=== PATIENT | male | born 1995 | race Caucasian/White ===

== ENCOUNTER → 2019-04-17 | Outpatient (CLI) | payer BC, SELFPAY ==
[2019-04-20 03:06] LABS: Alternaria alternata <0.10 kU/L (Class 0); Aspergillus fumigatus <0.10 kU/L (Class 0); Bahia Grass 0.67 kU/L (Class II); Bermuda Grass 0.28 kU/L (Class 0/I); Bluegrass, Kentucky 1.63 kU/L (Class III); Cat Hair/Dander, Standard <0.10 kU/L (Class 0); Cedar, Mountain <0.10 kU/L (Class 0); Cladosporium herbarum <0.10 kU/L (Class 0); Cockroach, American <0.10 kU/L (Class 0); D farinae Mite <0.10 kU/L (Class 0); D pteronyssinus 0.14 kU/L (Class 0/I); Dog Epithelia 0.21 kU/L (Class 0/I); Elm, American White <0.10 kU/L (Class 0); Hazelnut Tree <0.10 kU/L (Class 0); Hickory, White <0.10 kU/L (Class 0); Maple/Box Elder <0.10 kU/L (Class 0); Mucor racemosus <0.10 kU/L (Class 0); Mugwort <0.10 kU/L (Class 0); Mulberry, White <0.10 kU/L (Class 0); Oak, White <0.10 kU/L (Class 0); Penicillium chrysogen <0.10 kU/L (Class 0); Pigweed, Rough <0.10 kU/L (Class 0); Plantain, English <0.10 kU/L (Class 0); Ragweed, Short/Common <0.10 kU/L (Class 0); Sheep Sorrel(Dock) <0.10 kU/L (Class 0); Stemphylium herbarum <0.10 kU/L (Class 0); Sweet Gum <0.10 kU/L (Class 0); Sycamore, American <0.10 kU/L (Class 0)
[2019-04-24 13:01] LABS: Nettle <0.10 kU/L (Class 0)
== END | disposition home or self-care (01) ==
LOC: MFPLAB 08:11
PROVIDERS: Family Provider Family Medicine; PCP Family Medicine; Referring Provider Family Medicine; Visit Provider Family Medicine
DX: J30.9 Allergic rhinitis, unspecified (principal)
CPT/HCPCS: 36415; 86003

== ENCOUNTER → 2022-03-24 | Outpatient (CLI) | payer BC, SELFPAY ==
--- NOTE | 2022-03-24 10:26 | RAD_ITS ---
INDICATION: rule out fluid on lungs EXAMINATION/TECHNIQUE: X-RAY - XR Chest 2 Views COMPARISON: None. FINDINGS: LINES/DEVICES: None. LUNGS: No consolidation, edema or effusion. No pneumothorax. MEDIASTINUM AND CARDIOVASCULAR STRUCTURES: Cardiac silhouette not enlarged. Central airways and mediastinal contour are unremarkable. BONES AND SOFT TISSUES: Unremarkable. RAD/Chest PA and Lateral IMPRESSION: No radiographic evidence of acute cardiopulmonary disease. Electronically Signed: Romulo Huynh MD at 12:19 EDT ,
== END | disposition home or self-care (01) ==
LOC: MTLAB 10:26 → MTRAD 10:28
PROVIDERS: PCP Family Medicine; Referring Provider Nurse Practitioner Family; Visit Provider Nurse Practitioner Family
DX: R07.89 Other chest pain (principal)
CPT/HCPCS: 71046

== ENCOUNTER → 2022-12-23 | Outpatient (CLI) | payer BC, SELFPAY ==
[2022-12-25 15:08] LABS: Deamidated Gliadin IgA 12 units (0-19); Deamidated Gliadin IgG 3 units (0-19); Endomysial Antibody IgA Negative (Negative); Immunoglobulin A 234 mg/dL (90-386); t-Transglutaminase IgA <2 U/mL (0-3)
[2022-12-31 00:06] LABS: Beef <0.10 kU/L (Class 0); Chocolate <0.10 kU/L (Class 0); Corn <0.10 kU/L (Class 0); Egg, Whole <0.10 kU/L (Class 0); Milk (Cow) <0.10 kU/L (Class 0); Peanut <0.10 kU/L (Class 0); Pork <0.10 kU/L (Class 0); Soybean <0.10 kU/L (Class 0); Wheat <0.10 kU/L (Class 0)
== END | disposition home or self-care (01) ==
LOC: MFPLAB 13:38
PROVIDERS: PCP Family Medicine; Visit Provider Family Medicine
DX: Z91.018 Allergy to other foods (principal); R19.5 Other fecal abnormalities
CPT/HCPCS: 36415; 82784; 83516; 86003; 86005; 86255

== ENCOUNTER → 2023-04-09 | Outpatient (CLI) | payer BC, SELFPAY ==
[2023-04-09 13:12] LABS: Thyroid Stim Hormone (TSH) 1.67 uIU/mL (0.358-3.74)
== END | disposition home or self-care (01) ==
LOC: MTLAB 11:20
PROVIDERS: PCP Family Medicine
DX: R19.4 Change in bowel habit (principal); R10.30 Lower abdominal pain, unspecified
CPT/HCPCS: 36415; 84443

== ENCOUNTER → 2023-04-20 | Outpatient (CLI) | payer BC, SELFPAY ==
[2023-04-20 12:07] LABS: Absolute Lymphocyte Count 1.16 X10^3/uL (0.83-4.51); Absolute Neutrophil Count 2.1 X10^3/uL (2.0-7.7); Basophil# 0.03 X10^3/uL; Basophil% 0.8 % (0-1); Eosinophil# 0.08 X10^3/uL; Eosinophils% 2.1 % (0-5); Hematocrit 45.1 % (40-54); Hemoglobin 14.9 g/dL (13.0-16.5); Lymphocyte # 1.16 X10^3/ul (0.83-4.51); Lymphocyte % 29.8 % (19-41); Mean Corpuscular Hgb 31.4 pg (27.0-32.0); Mean Corpuscular Volume 95.1 fL (80-94); Monocyte# 0.53 X10^3/uL; Monocyte% 13.6 % (0-10); NRBC Flagged by Analyzer 0 % (0-5); Neutrophil # 2.09 X10^3/uL (2.7-7.7); Neutrophil % 53.7 % (47-70); Platelet Count 193 K/mm3 (150-450); RBC Distribution Width CV 11.9 % (11.6-14.6); RBC Distribution Width SD 42.1 fl (35.1-43.9); Red Blood Count 4.74 M/mm3 (4.6-6.2); White Blood Count 3.9 K/mm3 (4.4-11.0)
[2023-04-20 12:30] LABS: Vitamin B12 350 pg/mL (211-911); Vitamin D,25 Hydroxy 21.7 ng/mL
[2023-04-20 13:03] LABS: ALB/GLOB Ratio 1.1 RATIO (0.9-2.4); AST(SGOT) 24 U/L (15-37); Alanine Aminotransfer ALT/SGPT 30 U/L (16-61); Albumin, Serum 4.1 g/dL (3.2-5.0); Alkaline Phosphatase 77 U/L (45-117); Anion Gap 4 (5-15); BUN 16 mg/dL (7-18); BUN/Creat Ratio 13.4 RATIO (10-20); Calcium,Total 9.2 mg/dL (8.5-10.1); Chloride 106 mmol/L (98-107); Creatinine, Serum 1.19 mg/dL (0.70-1.30); EST Glomerular Filtration Rate 76 mL/min (>60); Est Glom Filt Rate - Afr Amer 92 mL/min (>60); Globulin 3.7 g/dL (2.2-4.2); Glucose 94 mg/dL (74-106); Magnesium 2.4 mg/dL (1.6-2.6); Potassium 4.2 mmol/L (3.5-5.1); Protein, Total 7.8 g/dL (6.4-8.2); Sodium Level 140 mmol/L (136-145); T4 Free Direct 0.88 ng/dL (0.76-1.46)
== END | disposition home or self-care (01) ==
LOC: MFPLAB 09:51
PROVIDERS: PCP Family Medicine; Visit Provider Family Medicine
DX: R00.2 Palpitations (principal); R53.83 Other fatigue
CPT/HCPCS: 36415; 80053; 82306; 82607; 83735; 84439; 84443; 85025

== ENCOUNTER → 2023-09-28 | Outpatient (CLI) | payer BC, SELFPAY ==
--- NOTE | 2023-09-28 14:27 | RAD_ITS ---
STUDY: X-RAY - PARANASAL SINUSES REASON FOR EXAM: Male, 28 years old. SINUS CONGESTION TECHNIQUE: 3 view(s) of the paranasal sinuses were obtained. COMPARISON: None. FINDINGS: Normal visualized frontal, maxillary, ethmoidal and sphenoid sinuses. Normal visualized facial bones. The soft tissue structures are unremarkable. RAD/Sinuses min 3 Views IMPRESSION: Normal x-rays of the paranasal sinuses. Electronically Signed: Scot Ledesma MD at 14:54 EST ,
[2023-10-04 15:08] LABS: Alternaria alternata <0.10 kU/L (Class 0); Aspergillus fumigatus <0.10 kU/L (Class 0); Bahia Grass 0.27 kU/L (Class 0/I); Bermuda Grass 0.11 kU/L (Class 0/I); Cat Hair/Dander, Standard <0.10 kU/L (Class 0); Cedar, Mountain <0.10 kU/L (Class 0); Cladosporium herbarum <0.10 kU/L (Class 0); Cockroach, American <0.10 kU/L (Class 0); D farinae Mite <0.10 kU/L (Class 0); D pteronyssinus 0.13 kU/L (Class 0/I); Dog Epithelia 0.19 kU/L (Class 0/I); Elm, American White <0.10 kU/L (Class 0); Hazelnut Tree <0.10 kU/L (Class 0); Hickory, White <0.10 kU/L (Class 0); Johnson Grass <0.10 kU/L (Class 0); Maple/Box Elder <0.10 kU/L (Class 0); Mucor racemosus <0.10 kU/L (Class 0); Mugwort <0.10 kU/L (Class 0); Mulberry, White <0.10 kU/L (Class 0); Nettle <0.10 kU/L (Class 0); Oak, White <0.10 kU/L (Class 0); Penicillium chrysogen <0.10 kU/L (Class 0); Pigweed, Rough <0.10 kU/L (Class 0); Plantain, English <0.10 kU/L (Class 0); Ragweed, Short/Common <0.10 kU/L (Class 0); Sheep Sorrel(Dock) <0.10 kU/L (Class 0); Stemphylium herbarum <0.10 kU/L (Class 0); Sweet Gum <0.10 kU/L (Class 0); Sycamore, American <0.10 kU/L (Class 0)
== END | disposition home or self-care (01) ==
LOC: MTLAB 14:26
PROVIDERS: PCP Family Medicine; Referring Provider Family Medicine; Visit Provider Family Medicine
DX: R09.81 Nasal congestion (principal)
CPT/HCPCS: 36415; 70220; 86003

== ENCOUNTER → 2023-11-26 | Outpatient (CLI) | payer BC, SELFPAY ==
--- NOTE | 2023-11-26 13:55 | CT_ITS ---
INDICATION: CHRONIC SINUSITIS EXAMINATION: CT SINUSES - CT Sinuses W/O Contrast Injection TECHNIQUE: Helically acquired images were obtained of the paranasal sinuses. A radiation dose optimization technique was used for this scan. IV Contrast dosage and agent: RADIATION DOSAGE (If Supplied By Facility): CTDIvol = ( 28.14 ) mGy, DLP = ( 770.81 ) mGycm COMPARISON: No relevant prior comparison study available FINDINGS: FRONTAL SINUSES AND RECESSES: There is minimal opacification. ETHMOID AIR CELLS: There is mild opacification. MAXILLARY SINUSES: There is mild opacification. There are few round low-attenuation foci within the maxillary sinuses which may reflect mucous retention cysts or polyps. OSTIOMEATAL COMPLEXES: Clear and normally formed. SPHENOID SINUSES: There is trace opacification. SPHENOETHMOIDAL RECESSES: Clear. ANCILLARY FINDINGS: NASAL TURBINATES: There are bilateral middle turbinate willard bullosa. NASAL SEPTUM: There is mild right septal deviation right of midline associated with a bony spur. ORBITS: Unremarkable. VISUALIZED DENTITION: No periodontal osseous erosion. ANTERIOR CRANIAL FOSSA: Unremarkable. CT/Sinus/Facial Bone IMPRESSION: Mild pansinusitis. Bilateral middle turbinate willard bullosa. Mild nasal septal deviation right of midline. Electronically Signed: Lalita Banks MD at 14:34 EDT ,
== END | disposition home or self-care (01) ==
PROVIDERS: PCP Family Medicine; Referring Provider Otolaryngology; Visit Provider Otolaryngology
DX: J32.8 Other chronic sinusitis (principal)
CPT/HCPCS: 70486

== ENCOUNTER → 2024-02-16 | Outpatient (CLI) | payer BC, SELFPAY ==
[2024-02-16 15:15] LABS: Absolute Lymphocyte Count 1.64 X10^3/uL (0.83-4.51); Basophil# 0.04 X10^3/uL; Basophil% 0.9 % (0-1); Eosinophil# 0.13 X10^3/uL; Eosinophils% 3.1 % (0-5); Hematocrit 44.7 % (40-54); Lymphocyte # 1.64 X10^3/ul (0.83-4.51); Lymphocyte % 38.9 % (19-41); Mean Corp Hgb Conc 33.6 g/dL (32-36); Mean Corpuscular Hgb 30.8 pg (27.0-32.0); Mean Corpuscular Volume 91.8 fL (80-94); Mean Platelet Vol. 10.7 fl (6.2-12.0); Monocyte# 0.38 X10^3/uL; NRBC Flagged by Analyzer 0 % (0-5); Neutrophil # 2.01 X10^3/uL (2.7-7.7); Neutrophil % 47.6 % (47-70); Platelet Count 203 K/mm3 (150-450); RBC Distribution Width CV 11.9 % (11.6-14.6); Red Blood Count 4.87 M/mm3 (4.6-6.2); White Blood Count 4.2 K/mm3 (4.4-11.0)
[2024-02-16 15:50] LABS: Vitamin D,25 Hydroxy 24.2 ng/mL
[2024-02-16 16:19] LABS: ALB/GLOB Ratio 1.3 RATIO (0.9-2.4); AST(SGOT) 33 U/L (15-37); Alanine Aminotransfer ALT/SGPT 35 U/L (16-61); Albumin, Serum 4.3 g/dL (3.2-5.0); Alkaline Phosphatase 89 U/L (45-117); Anion Gap 6 (5-15); BUN 22 mg/dL (7-18); BUN/Creat Ratio 20.4 RATIO (10-20); Calcium,Total 9.3 mg/dL (8.5-10.1); Chloride 104 mmol/L (98-107); Creatinine, Serum 1.08 mg/dL (0.70-1.30); EST Glomerular Filtration Rate 85 mL/min (>60); Est Glom Filt Rate - Afr Amer 103 mL/min (>60); Globulin 3.4 g/dL (2.2-4.2); Glucose 86 mg/dL (74-106); Magnesium 2.4 mg/dL (1.6-2.6); Potassium 4.5 mmol/L (3.5-5.1); Protein, Total 7.7 g/dL (6.4-8.2); Sodium Level 138 mmol/L (136-145); Thyroid Stim Hormone (TSH) 1.48 uIU/mL (0.358-3.74)
== END | disposition home or self-care (01) ==
LOC: MFPLAB 11:39
PROVIDERS: PCP Family Medicine; Visit Provider Family Medicine
DX: R00.2 Palpitations (principal); E55.9 Vitamin D deficiency, unspecified
CPT/HCPCS: 36415; 80053; 82306; 83735; 84443; 85025

== ENCOUNTER → 2024-04-17 | Outpatient (CLI) | payer BC, SELFPAY ==
--- NOTE | 2024-04-17 12:59 | ECHOD_ITS ---
Reason For Study: Palpitations Procedure This was a 2D Doppler, Color Flow transthoracic echocardiogram. Technically difficult apicals due to poor acoustic window. Exam performed in department. Left Ventricle Normal LV size. Left ventricular systolic function is normal. The left ventricular ejection fraction is 65 %. No regional wall motion abnormalities noted. Right Ventricle Normal RV size. Normal systolic function. Atria Normal left atrium. Normal right atrium. Mitral Valve Normal mitral valve. Tricuspid Valve Normal tricuspid valve. Aortic Valve Trisinus/trileaflet aortic valve. Pulmonic Valve The pulmonic valve is not well visualized. Great Vessels Normal aortic root. The pulmonary artery is normal size. Normal inferior vena cava. Pericardium/Pleural No pericardial effusion. MMode/2D Measurements & Calculations LVIDd: 4.9 cm IVSd: 0.93 cm Ao root diam: 3.2 cm LVIDs: 3.2 cm LVPWd: 0.78 cm LA dimension: 2.7 cm RVDd: 3.8 cm FS: 35.0 % LAV(MOD-sp4): 23.1 ml LA A4 area: 11.8 cm2 RA A4 area: 11.2 cm2 TAPSE: 1.7 cm Time Measurements MV dec time: 0.22 sec Doppler Measurements & Calculations MV E max fadi: 90.2 cm/sec Lat Peak E' Fadi: 16.6 cm/sec Med Peak E' Fadi: 13.4 cm/sec MV A max fadi: 61.0 cm/sec E/E' lat: 5.4 E/E' med: 6.7 MV E/A: 1.5 MV V2 max: 108.1 cm/sec MV P1/2t max fadi: 109.2 cm/sec Ao V2 max: 95.0 cm/sec MV max P.7 mmHg MV P1/2t: 85.9 msec Ao max P.7 mmHg MV V2 mean: 47.4 cm/sec MV mean P.2 mmHg MV dec slope: 372.3 cm/sec2 MV V2 VTI: 31.1 cm MVA(P1/2t): 2.6 cm2 LV V1 max: 84.7 cm/sec PA V2 max: 87.6 cm/sec LV V1 max P.9 mmHg PA max PG (full): 0.69 mmHg PA V2 mean: 62.1 cm/sec PA mean PG (full): 0.44 mmHg ECHO/Echo Complete Interpretation Summary Normal LV size. Left ventricular systolic function is normal. The left ventricular ejection fraction is 65 %. Structurally normal valves. Ordering Physician: Blaine Lopes Referring Physician: Blaine Lopes Performed By: Jeremie Boles RCS
== END | disposition home or self-care (01) ==
LOC: CVS 12:52
PROVIDERS: PCP Family Medicine; Referring Provider Internal Medicine Cardiovascular Disease; Visit Provider Internal Medicine Cardiovascular Disease
DX: R00.2 Palpitations (principal)
CPT/HCPCS: 93306

== ENCOUNTER → 2024-05-23 | Outpatient (CLI) | payer BC, SELFPAY ==
[2024-05-23 12:50] LABS: Absolute Neutrophil Count 2.5 X10^3/uL (2.0-7.7); Basophil# 0.05 X10^3/uL; Basophil% 1.1 % (0-1); Eosinophil# 0.13 X10^3/uL; Eosinophils% 2.9 % (0-5); Hematocrit 44.9 % (40-54); Hemoglobin 14.7 g/dL (13.0-16.5); Lymphocyte % 31.1 % (19-41); Mean Corp Hgb Conc 32.7 g/dL (32-36); Mean Corpuscular Volume 94.7 fL (80-94); Mean Platelet Vol. 10.2 fl (6.2-12.0); Monocyte# 0.42 X10^3/uL; Monocyte% 9.3 % (0-10); NRBC Flagged by Analyzer 0 % (0-5); Neutrophil # 2.49 X10^3/uL (2.7-7.7); Neutrophil % 55.4 % (47-70); Platelet Count 228 K/mm3 (150-450); RBC Distribution Width CV 12.4 % (11.6-14.6); RBC Distribution Width SD 43.5 fl (35.1-43.9); Red Blood Count 4.74 M/mm3 (4.6-6.2); White Blood Count 4.5 K/mm3 (4.4-11.0)
[2024-05-23 13:10] LABS: ALB/GLOB Ratio 1.2 RATIO (0.9-2.4); AST(SGOT) 41 U/L (15-37); Alanine Aminotransfer ALT/SGPT 51 U/L (16-61); Albumin, Serum 4.1 g/dL (3.2-5.0); Alkaline Phosphatase 79 U/L (45-117); Anion Gap 5 (5-15); BUN 21 mg/dL (7-18); BUN/Creat Ratio 19.6 RATIO (10-20); Calcium,Total 9.4 mg/dL (8.5-10.1); Chloride 107 mmol/L (98-107); Creatinine, Serum 1.07 mg/dL (0.70-1.30); EST Glomerular Filtration Rate 86 mL/min (>60); Est Glom Filt Rate - Afr Amer 104 mL/min (>60); Globulin 3.4 g/dL (2.2-4.2); Glucose 83 mg/dL (74-106); Magnesium 2.2 mg/dL (1.6-2.6); Potassium 4.4 mmol/L (3.5-5.1); Protein, Total 7.5 g/dL (6.4-8.2); Sodium Level 142 mmol/L (136-145)
== END | disposition home or self-care (01) ==
LOC: MFPLAB 10:07
PROVIDERS: PCP Family Medicine; Visit Provider Family Medicine
DX: R00.2 Palpitations (principal)
CPT/HCPCS: 36415; 80053; 82306; 83735; 84443; 85025

== ENCOUNTER 2024-08-30 10:00 | Outpatient (RCR) | payer BC, SELFPAY ==
--- NOTE | 2024-08-08 11:25 | HP.PTEVAL ---
Patient's Visit Information Visit Information Visit Information: PARESH CHOWDHURY is a 29 year old M referred to Physical Therapy by Dr. Loki Foster MD with a diagnosis of disequilibrium, lightheadedness. Date of Evaluation: 08/08/24 Physical Therapist: NATHALIA Sloan Visit Plan Frequency: 1-2x /Week Duration: 6 Weeks Plan: 1-2X/ week to work on head movements, vestibular inputs with HEP Sitting neck extension to neutral head movements X 30 seconds and then Neutral head position to flexion X 30 seconds (given for HEP) Subjective Subjective: Pt has a lot of lightheadedness and dizziness. It goes away when he is active. He gets it when laying down, open spaces, or standing. He gets dizziness with looking up at the melecio. When laying on his back he might get a panicky sensation. If he feels the ground moving he will feel like he has to hold onto something. This has slowly gotten worse over the last 5 years. Pressure in his sinuses or in his head adds onto that. He has always had a fear of heights. He does not get dizzy rolling over in bed. The sensation is better when laying on his side compared to his back. The room does not spin. The sensation is dependent on circumstance...like wide open spaces bothers more than inside. He feels lightheaded and the feeling of a weightlessness and feels like he might fall over. He feels faint and if it gets worse or really bad or a panic in his chest (like his heart skips a beat). He feels like not in control of his body and has to touch his chest to feel grounded. He has no SOB. They have done a lot of heart tests and they were fine. He does not think that he has anxiety issue. He did not feel any different on the anxiety med and stopped it. He has seasonal allergies and no food allergies. Objective Objective: Gait: Normal gait pattern Walking with horizontal head turns: slight veering and slight OFF feeling Walking with vertical head turns: gait disturbance and off balance with off feeling and flush feeling FGA: Able to sit to stand without his arms CATSIB 110/120 Sitting horizontal smooth pursuit X 30 seconds with mild dizziness but smooth motion Sitting vertical smooth pursuit X 30 seconds with mild dizziness but smooth motion Sitting head and eyes move together horizontal X 30 seconds slightly more dizzy feeling and more spin feeling Sitting head and eyes move together vertical X 30 seconds mild dizziness Standing head and eyes move together horizontal X 30 seconds slightly dizzy but not more than in sitting Standing head and eyes move together vertical X 30 seconds a little more dizzy but does not feel like he is going to fall over Sitting neck extension to neutral head movements X 30 seconds and then Neutral head position to flexion X 30 seconds (given for HEP) Balance/Special Test Scores Functional Gait Assessment Score: 28 % Disability: 6.6700 CATSIB Score (Max score 120 seconds): 110 Dizziness Score: 36 Goals Goal 1:: I HEP Goal Time Frame: 4-6 Weeks Goal 2:: Be able to stand on foam with EC X 1 min with head movements without LOB or feeling dizzy Goal Time Frame: 4-6 Weeks Goal 3:: Be able to walk with vetical and horizontal head movements without feeling dizzy Goal Time Frame: 4-6 Weeks Rehabilitation Potential Rehabilitation Potential: Good Anticipated Interventions Patient/Client Instruction: Educate patient on: Condition and Plan of Care For the Purpose of:: To increase ROM, To improve nutrient delivery to tissue, To improve ability to perform ADL's, To increase tolerance to activity/condition/position, To improve performance and independence with ADL's, To improve ability of physical actions for home/community/work/leisure, To improve gait and locomotor functions, To improve balance and To improve safety with gait Therapeutic Exercise to Include: Strength training, Endurance training, Balance training, Gait and locomotor training and Neuromotor development For the Purpose of:: To improve ability to perform ADL's, To improve gait and locomotor functions, To improve endurance, To improve balance and To improve safety with gait Functional Training to Include: Gait training For the Purpose of:: To improve gait and locomotor functions Text: Thank you for the opportunity to evaluate your patient. For Medicare and Medicare HMO plans, please review the plan of care and approve it. It will need to be FAXED BACK to us at [phone] for Medicare purposes. For Medicare only, by signing this I certify the plan of care. Please let me know if there are questions or concerns regarding this plan of care. Physician Signature: Date:
--- NOTE | 2024-08-30 14:04 | HP.PTDCSUM_ITS ---
Discharge Summary D/C summary: It has been my pleasure to treat PARESH CHOWDHURY referred by Dr. Loki Foster MD, with the diagnosis of disequilibrium, lightheadedness for a total of 4 visit(s). Discharge Date: 08/30/24 Please see the following information for a summary of their discharge status. Subjective Subjective: His balance might be better but the specific sensation of pressure/feeling in legs and hands and body and hands. Overall Improvement % Improvement: 10 Objective Objective/Function: At this point in time we are able to bring on some of his symptoms with vestibular inputs but it is more a sensation in his LE that shoots up his body more than a dizzy sensation or head pressure etc. He feels that vestibular is the closest that we have come to what is going on but wondering if a neurologist would be beneficial. Pt is able to walk with horizontal and vertical head turns without dizziness, veering or LOB He is able to stand on BOSU ball X 1 min with EC without LOB Goals Goal 1:: I HEP Goal Progress: Goal Met Goal 2:: Be able to stand on foam with EC X 1 min with head movements without LOB or feeling dizzy Goal Progress: Goal Met Goal 3:: Be able to walk with vetical and horizontal head movements without feeling dizzy Goal Progress: Goal Met Plan Plan: DC PT to [facility] for continued vestibular inputs and back to his Dr. Soria/C Information Discharge Comments: DC PT to [facility] and back to Dr padron sentence: If there are questions or concerns regarding this patient's physical therapy, please feel free to call me at [phone]. Thank you for the referral of this patient. Sincerely, Kayla Fung, MPT Balance/Gait/Functional tests Balance/Special Test Scores Functional Gait Assessment Score: 28 % Disability: 6.6700 CATSIB Score (Max score 120 seconds): 110 Dizziness Score: 36 Improvement % Improvement: 10
== END 2024-08-30 14:14 | disposition home or self-care (01) ==
LOC: PT 10:00
PROVIDERS: PCP Family Medicine; Referring Provider Family Medicine; Visit Provider Family Medicine
DX: R42 Dizziness and giddiness (principal)
CPT/HCPCS: 97110; 97161; 97530